=== PATIENT | male | born 2000 | race Caucasian/White ===

== ENCOUNTER 2018-07-08 18:24 | Emergency (ER) | payer OTHER ==
--- NOTE | 2018-07-08 18:27 | ER Report ---
History and Physical Time Seen By MD: 18:28 HPI/ROS CHIEF COMPLAINT: Head injury, vomiting HISTORY OF PRESENT ILLNESS: 18-year-old male presents ambulatory to the ER unable to hold anything down all day. He states he fell at a [employer] party last night while intoxicated. He ended up striking his head on the bedpost. Posterior neck pain. Patient states he continued to fall several more times last night. He denies any hematomas on his head. Patient notes no visual changes. Patient notes no incoordination, numbness, tingling or weakness in any of his arms or legs. Patient notes a mild headache. He notes no exacerbating or alleviating factors. REVIEW OF SYSTEMS: Respiratory: No cough, no dyspnea. Cardiovascular: No chest pain, no palpitations. Gastrointestinal: As above Musculoskeletal: No back pain. Allergies: Coded Allergies: No Known Drug Allergies (Unverified , 07/08/18) Home Meds Active Scripts Ondansetron Hcl (ZOFRAN) 4 Mg Tablet, 4 MG PO Q6H PRN for NAUSEA/VOMITING, #10 Prov:JAY HERNANDEZ DO 07/08/18 Reported Medications Ibuprofen (IBUPROFEN) 200 Mg Capsule, 2 CAP PO Q6H, CAPSULE 07/08/18 Reviewed Nurses Notes: Yes Old Medical Records Reviewed: Yes Constitutional Vital Sign - Last 24 Hours 07/08/18 07/08/18 07/08/18 07/08/18 18:30 18:33 18:39 18:54 Temp 99.1 Pulse 133 133 109 Resp 16 B/P (MAP) 131/96 (108) 131/96 Pulse Ox 93 98 89 O2 Delivery Room Air 07/08/18 07/08/18 07/08/18 07/08/18 19:09 19:24 19:39 19:41 Pulse 112 118 123 B/P (MAP) 117/40 (65) Pulse Ox 85 91 91 07/08/18 19:42 B/P (MAP) 107/58 (74) Intake and Output 07/08/18 07/08/18 07/09/18 14:58 22:58 06:58 Intake Total 1000 ml Balance 1000 ml Physical Exam Vital signs stable, afebrile, pulse ox normal General Appearance: The patient is alert, has no immediate need for airway protection and no signs of toxicity. The patient the head and neck reveals no tenderness or trauma. There are no scalp contusions noted. There is no tenderness on aggressive palp. Patient of the midline of the cervical spine HEENT: Pupils equal and round no pallor or injection. TMs normal, TMJs nontender, oropharynx without dental trauma, palpation of the facial bones reveals there are intact Respiratory: There are no retractions, lungs are clear to auscultation. No chest wall tenderness Cardiovascular: Regular rate and rhythm. Gastrointestinal: Abdomen is soft and non tender, no masses, bowel sounds normal. Neurological: Alert and oriented 3, cranial nerves II through XII intact motor 5/5 all groups, sensory intact to light touch 4, cerebellum grossly intact Skin: Warm and dry, no rashes. Musculoskeletal: Neck is supple non tender. Extremities are nontender, nonswollen and have full range of motion. No evidence of trauma DIFFERENTIAL DIAGNOSIS: After history and physical exam differential diagnosis was considered for head injury including but not limited to concussion, skull fracture, intraparenchymal contusion, subarachnoid, subdural and epidural hematoma. Additionally, food poisoning, alcohol poisoning Medical Decision Making EKG/Imaging Imaging Results: CT scan of the head without contrast was obtained. The results of the study are EXAMINATION: CT HEAD WITHOUT CONTRAST COMPARISON: None available HISTORY: fell, head injury PROCEDURE: Noncontrast CT from the vertex through the skull base. One of the following dose optimization techniques was utilized in the performance of this exam: Automated exposure control; adjustment of the mA and/or kV according to the patient's size; or use of an iterative reconstruction technique. Specific details can be referenced in the facility's radiology CT exam operational policy. FINDINGS: Brain volume: Age-appropriate. Hemorrhage/extra-axial fluid: None. Mass effect/midline shift/edema: None. Ischemia: Miller-white differentiation is preserved. Ventricles and basal cisterns: Within normal limits. Posterior fossa: Negative. Vessels: Negative. Calvarium, skull base, and scalp: Negative. Visualized sinuses and orbits: Within normal limits. IMPRESSION: Negative noncontrast head CT. The study was read by the radiologist. I viewed the images myself on the PACS system. ED Course/Re-evaluation Clinical Indication for ER IV: Hydration, IV Access ED Course Patient was admitted to an examination room. H&P was done. The differential diagnoses was considered. On conical examination. Patient has head injury. He's had continued vomiting. I am suspect that vomiting, some related to concussion. Patient's medicated with IV fluid hydration and Zofran. A head CT is performed which is unremarkable. Results are shared with the patient. He's advised to conservative treatment plan of ibuprofen and Zofran. He is advised to follow-up with primary care if unimproved in 3-5 days. Decision to Disposition Date: Jul 08, 2018 Decision to Disposition Time: 18:57 Depart Departure Latest Vital Signs Vital Signs Date Time Temp Pulse Resp B/P (MAP) Pulse Ox O2 Delivery O2 Flow Rate FiO2 07/08/18 19:42 107/58 (74) 07/08/18 19:39 123 91 07/08/18 18:33 99.1 16 Room Air Impression: Primary Impression: Head injury Additional Impression: Vomiting Condition: Improved Disposition: HOME OR SELF-CARE New Scripts Ondansetron Hcl (ZOFRAN) 4 Mg Tablet 4 MG PO Q6H PRN for NAUSEA/VOMITING, #10 Prov: JAY HERNANDEZ DO 07/08/18 Patient Instructions: Acute Nausea and Vomiting (ED), Head Injury (ED) Additional Instructions: Take ibuprofen 200 mg 3 tablets 3 times a day with food as needed for headache relief Encourage fluid intake Use Zofran to control your vomiting Follow-up with primary care if unimproved in 3-5 days. Problem Qualifiers Primary Impression: Head injury Encounter type: initial encounter Qualified Codes: S09.90XA - Unspecified injury of head, initial encounter Additional Impression: Vomiting Vomiting type: unspecified Vomiting Intractability: unspecified Nausea presence: unspecified Qualified Codes: R11.10 - Vomiting, unspecified JAY HERNANDEZ DO Jul 08, 2018 18:27
[2018-07-08] MEDS ORDERED: IBUP-136 PO (18:33)
[2018-07-08] MEDS ORDERED: NS(*) 0.9% 1000 ML BAG 1,000 ML IV ONE (18:35)
[2018-07-08] MEDS ORDERED: ONDANSETRON 4 MG/2 ML VIAL IVP ONE ×2 (18:35→19:40)
[2018-07-08] MEDS ORDERED: ONDA4TAB97 PO (19:14)
--- NOTE | 2018-07-08 19:33 | RADIOLOGY IMAGING REPORT ---
[place] [facility] [place] NAME: Fausto Sanchez : 2000 MR: [id number] V: [id number] EXAM DATE: ORDERING PHYSICIAN: JAY HERNANDEZ TECHNOLOGIST: Location: [facility] [place] Patient: Fausto Sanchez : 2000 Visit/Account:[id number] Date of Sevice: 07/08/2018 EXAMINATION: CT HEAD WITHOUT CONTRAST COMPARISON: None available HISTORY: fell, head injury PROCEDURE: Noncontrast CT from the vertex through the skull base. One of the following dose optimizat ion techniques was utilized in the performance of this exam: Automated exposure control; adjustment o f the mA and/or kV according to the patient's size; or use of an iterative reconstruction technique. Specific details can be referenced in the facility's radiology CT exam operational policy. FINDINGS: Brain volume: Age-appropriate. Hemorrhage/extra-axial fluid: None. Mass effect/midline shift/edema: None. Ischemia: Miller-white differentiation is preserved. Ventricles and basal cisterns: Within normal limits. Posterior fossa: Negative. Vessels: Negative. Calvarium, skull base, and scalp: Negative. Visualized sinuses and orbits: Within normal limits. IMPRESSION: Negative noncontrast head CT. Report Dictated By: Willie Mac MD at 07/08/2018 7:25 PM Report E-Signed By: Willie Mac MD at 07/08/2018 7:28 PM WSN:[id number]
[2018-07-08] MEDS ORDERED: KETOROLAC 30 MG/ML VIAL IVP ONE (19:40)
[2018-07-08 19:42] VITALS: BP 107/58
[2018-07-08] MEDS ORDERED: IBUPROFEN 600 MG TAB PO ONE (19:45)
[2018-07-08] MEDS ORDERED: ACETAMINOPHEN 325 MG TAB PO ONE (19:45)
== END 2018-07-08 19:55 | disposition home or self-care (01) ==
LOC: ER 18:33
DX: S09.90XA Unspecified injury of head, initial encounter (principal); R11.10 Vomiting, unspecified
CPT/HCPCS: 70450; 96361; 96374; 99284; J2405; J7030